=== PATIENT | male | born 1940 | race Caucasian/White ===

== ENCOUNTER → 2020-04-22 | Day surgery (SDC) | payer OTHER ==
[~2020-04-22] MED LIST: 24HR ALLERGY REL5 MG PO; AMARYL4 MG PO; AMOXICILLIN875 MG PO; AUGMENTIN 875-1 EACH PO; BUMETANIDE0.5 MG PO; CALAN SR120 MG PO; CLOTRIMAZOLE TOP; COLACE 100MG C100 MG PO; ELIQUIS5 MG PO; GLUCOPHAGE1000 MG PO; HYDROCHLOROTHIA25 MG PO; IPRAT-ALBUT 0.5-3 ML NEB; K-DUR TAB 10 M10 MEQ PO; LIPITOR TAB 2020 MG PO; LISINOPRIL20 MG PO; LOPRESSOR 25 MG25 MG PO; LOTRIMIN CREAM15 GM TP; ZITHROMAX500 MG PO
== END | disposition home or self-care (01) ==
LOC: OR 06:22
DX: Z12.11 Encounter for screening for malignant neoplasm of colon (principal); D12.2 Benign neoplasm of ascending colon; K64.4 Residual hemorrhoidal skin tags; I13.0 Hypertensive heart and chronic kidney disease with heart failure and stage 1 through stage 4 chronic kidney disease, or unspecified chronic kidney disease; E11.22 Type 2 diabetes mellitus with diabetic chronic kidney disease; N18.30 Chronic kidney disease, stage 3 unspecified; I50.9 Heart failure, unspecified; I48.91 Unspecified atrial fibrillation; M10.9 Gout, unspecified; E78.5 Hyperlipidemia, unspecified; G47.33 Obstructive sleep apnea (adult) (pediatric); E66.01 Morbid (severe) obesity due to excess calories; Z68.39 Body mass index [BMI] 39.0-39.9, adult; Z86.010 Personal history of colon polyps; Z79.01 Long term (current) use of anticoagulants; Z79.84 Long term (current) use of oral hypoglycemic drugs; Z79.899 Other long term (current) drug therapy
CPT/HCPCS: 82962; J2001; J2704; J7120

== ENCOUNTER → 2020-12-09 | Outpatient (CLI) | payer OTHER | LOC: EXRD 12:51 | DX: N28.1 Cyst of kidney, acquired (principal) | CPT/HCPCS: 76775 ==